=== PATIENT | male | born 1940 | race Caucasian/White ===

== ENCOUNTER 2017-01-03 14:02 | Inpatient (IN) | payer OTHER, SELFPAY ==
[2017-01-01 08:24] LABS: BASOPHILS 0.3 %; BASOPHILS ABSOLUTE 0.03 10/3/uL (0.0-0.16); EOSINOPHILS 0.5 %; EOSINOPHILS ABSOLUTE 0.05 10/3/uL (0.0-0.53); HEMOGLOBIN 12.8 g/dL (13.6-17.8); IMMATURE GRANULOCYTES 0.3 %; IMMATURE GRANULOCYTES ABSOLUTE 0.03 10/3/uL (0.0-0.11); LYMPHOCYTES 13.5 %; LYMPHOCYTES ABSOLUTE 1.24 10/3/uL (0.67-4.30); MEAN CORPUSCULAR HEMOGLOB 28.2 pg (26.0-34.0); MEAN CORPUSCULAR VOLUME 88.1 fL (80-100); MEAN PLATELET VOLUME 10.1 fL (9.2-13.0); MONOCYTES 12.8 %; MONOCYTES ABSOLUTE 1.17 10/3/uL (0.21-1.20); NEUTROPHILS 72.6 %; NEUTROPHILS ABSOLUTE 6.65 10/3/uL (2.02-8.40); PLATELET COUNT 234 10/3/uL (150-400); RBC DISTRIBUTION WIDTH 14.7 % (12.0-16.0); RED CELL COUNT 4.54 10/6/uL (4.7-6.1); RETICULOCYTE COUNT 1.6 % (0.5-2.5); WHITE BLOOD CELLS 9.2 10/3/uL (4.5-10.5)
[2017-01-01 08:26] LABS: MANUAL DIFF NO %; RETICULOCYTE COUNT ABSOLUTE 70.8 10/3/uL (20.2-119.8)
--- NOTE | ~2017-01-03 | HP ---
History And Physical [id number] [place]. [address] NAME: ELIAZAR SHARP : 42 STATUS : ADM IN PAT#: [id number] AGE: 76 ADM/REG DATE : 01/03/17 MR#: [id number] REPORT SERV DATE: 01/05/17 DICTATED BY: LUIS SAMUELS DATE: 01/05/17 REPORT STATUS : Draft TRANSCRIBED BY: MODL DATE: 01/05/17 DATE OF ADMISSION: 01/03/2017 HISTORY: 76-year-old, white male, presented to the ED with several day history of progressively worsening right upper quadrant pain and discomfort. He also recently had constipation with no BM for 1 week in spite of Dulcolax orally, Dulcolax suppository, and mag citrate. Upon presenting to the ED, he had imaging consisting of a CT scan that was consistent with acute cholecystitis with cholelithiasis. Additional note was made of several new metastases from known myeloma in the left sacrum iliac bone, right inferior pubic bone, and possibly a third lesion in the right rib that was less impressive, but subtle. PAST MEDICAL HISTORY: Myeloma, hypertension, and high cholesterol. ALLERGIES: THE PATIENT HAS NO ALLERGIES TO FOOD, LATEX OR MEDICATIONS. PRIOR SURGERY: Include hemorrhoidectomy remotely. He had a C-spine stabilization due to myeloma involvement of the cervical vertebral bodies, 06/[address] Ureña. The patient is retired. He is a nonsmoker, nondrinker, and has 4 grown children. LABORATORY DATA: WBCs 5000, H and H 12.2 and 36.3. The patient has no left shift. He has 213,000 platelets. Chem profile shows a potassium of 3.9, BUN of 24, creatinine 1.39, glucose 94, albumin 3.1. Liver enzymes normal with mild elevation of AST at 50, lipase normal. CT scanning previously mentioned. The impression is that of gallstones and what appears to be acute cholecystitis and than the aforementioned metastatic disease. An ultrasound performed shows cholelithiasis. The gallbladder appeared normal with no evidence of wall thickening or pericholecystic fluid. On ultrasound image, he has hemangioma of the liver. PHYSICAL EXAMINATION: GENERAL: The patient is alert, oriented male, mild to moderate discomfort in the right upper quadrant. HEENT: Examination within normal limits. He has well-healed incision in his neck from previous C-spine surgery. There is no thyromegaly, nodularity, nodes, masses or tenderness. CARDIOVASCULAR: Regular rate and rhythm. ABDOMEN: Shows some guarding and discomfort, tenderness in right upper quadrant without rebound. He has no abdominal wall scar or hernia. IMPRESSION: 1. Acute or subacute cholecystitis with cholelithiasis. 2. Multiple myeloma with new mets to the pubic bone, pelvic ramus, and possible right rib. PLAN: Talked to the patient's family about risks and benefits of anesthesia and surgery. Described laparoscopic cholecystectomy. I have indicated to him that it is possible some of his discomfort is related to the new lesion in the rib rather than his gallbladder disease History And Physical [address] [place]. [address] NAME: ELIAZAR SHARP : 42 STATUS : ADM IN [facility]#: [id number] AGE: 76 ADM/REG DATE : 01/03/17 MR#: [id number] REPORT SERV DATE: 01/05/17 DICTATED BY: LUIS SAMUELS DATE: 01/05/17 REPORT STATUS : Draft TRANSCRIBED BY: ELIANA DATE: 01/05/[address] imaging suggesting acute cholecystitis and his pain syndrome, I think it is reasonable to proceed with surgery. MARITA/ELIANA Luis Samuels M.D. / [id number] CC: Leigh Dacosta M.D.
--- NOTE | ~2017-01-03 | OP ---
Record Of Operation [facility] [address] [place]. [address] NAME: ELIAZAR SHARP : 42 STATUS : ADM IN PAT#: [id number] AGE: 76 ADM/REG DATE : 01/03/17 MR#: [id number] REPORT SERV DATE: 01/05/17 DICTATED BY: LUIS SAMUELS DATE: 01/05/17 REPORT STATUS : Draft TRANSCRIBED BY: MODL DATE: 01/05/17 DATE OF PROCEDURE: 01/04/2017 PREOPERATIVE DIAGNOSIS: Subacute and acute cholecystitis and cholelithiasis. POSTOPERATIVE DIAGNOSIS: Subacute and acute cholecystitis and cholelithiasis. PROCEDURE: Laparoscopic cholecystectomy (two-site). SURGEON: Luis Samuels M.D. DESCRIPTION OF OPERATIVE PROCEDURE: The patient was brought to the operating suite, placed in a supine position, underwent satisfactory general endotracheal anesthesia without incident. The skin of the abdomen was scrubbed, prepped, and draped in usual sterile fashion. 0.5% Marcaine with epinephrine was utilized as supplemental local anesthesia at all intended trocar sites. Initially, an infraumbilical incision was performed dissecting through the skin and subcutaneous tissue to the umbilical fascia. This was grasped with a Mary Ann clamp and elevated and a disposable Veress insufflation needle was inserted through the umbilical fascia into the peritoneal cavity. Intraperitoneal tip location ascertained using saline hanging drop method. CO2 insufflated for pressures of 15 mmHg throughout the case. After adequate insufflation pressure achieved, Veress needle was removed, disposable bladed shielded 11 mm trocar inserted through the umbilical fascia into the peritoneal cavity following which a rigid forward-viewing 10 mm laparoscope was inserted. Visualization of intraabdominal parietes revealed no evidence of injury from initial insufflation or puncture. A cursory examination of pelvis was normal. Attention was turned to the upper abdomen. An additional 5 mm trocar was placed to right of falciform ligament. An additional 5 mm grasping instrument was inserted through the umbilical fascia next to the umbilical trocar. The gallbladder was visualized and had subacute inflammatory changes with fairly dense periduodenal adhesions. Fundus of the gallbladder was grasped and elevated and then using blunt and cautery dissection, the adhesions were taken down. The gallbladder wall look thickened and inflamed. Dissection in triangle of Calot was successful in identifying and skeletonizing the cystic duct, cystic duct-common duct junction, as well as the cystic artery, which was anterior. Both of these structures were controlled with multiple applications of the Weck 5 mm polymer clip system and divided, and then using spatula cautery dissection, the peritoneal attachments of the gallbladder and liver were divided. The gallbladder was removed from the subhepatic space. Hemostasis was assured. Next, irrigation was performed in the subhepatic space with 20-40 mL of saline and aspirated. The gallbladder was passed through the grasping instrument, passed through the Record Of Operation [address] [address] NAME: ELIAZAR SHARP : 42 STATUS : ADM IN [facility]#: [id number] AGE: 76 ADM/REG DATE : 01/03/17 MR#: [id number] REPORT SERV DATE: 01/05/17 DICTATED BY: LUIS SAMUELS DATE: 01/05/17 REPORT STATUS : Draft TRANSCRIBED BY: ELIANA DATE: 01/05/17 umbilical trocar, and withdrawn. The gallbladder was aspirated free of bile and multiple stones removed and the gallbladder was delivered. CO2 was allowed to egress from peritoneal cavity. No muscular bleeding was noted. The umbilicus was closed with [id number] suture 0 Vicryl, subcutaneous tissue closure with interrupted 4-0 Vicryl, running subcuticular stitch 4-0 Vicryl for the skin. Dermabond skin adhesive placed. The patient tolerated the procedure well and was returned to PACU in stable condition. At the termination procedure, sponge, needle, lap, and instrument counts were correct x3. ESTIMATED BLOOD LOSS: 15 mL. MARITA/ELIANA Luis Samuels M.D. / [id number] CC: Leigh Dacosta M.D.
[~2017-01-03 14:02] MED LIST: ASAB PO; CENTRUM PO; CYANO1000T PO; DSS PO; HYZAAR 100/25 T1 TAB PO; MOBIC7.5 PO; MSCONT15 PO; P10 PO; VITAMIN D1000 UNI1 PO; VITC500 PO; ZOCOR40 PO
[2017-01-03 14:29] LABS: BASOPHILS 0.2 %; BASOPHILS ABSOLUTE 0.01 10/3/uL (0.0-0.16); EOSINOPHILS 0.4 %; EOSINOPHILS ABSOLUTE 0.02 10/3/uL (0.0-0.53); HEMATOCRIT 36.3 % (40.0-51.0); HEMOGLOBIN 12.2 g/dL (13.6-17.8); IMMATURE GRANULOCYTES 0.2 %; IMMATURE GRANULOCYTES ABSOLUTE 0.01 10/3/uL (0.0-0.11); LYMPHOCYTES 23.4 %; LYMPHOCYTES ABSOLUTE 1.17 10/3/uL (0.67-4.30); MEAN CORPUS HGB CONC 33.6 g/dL (32.0-36.0); MEAN CORPUSCULAR VOLUME 86.4 fL (80-100); MEAN PLATELET VOLUME 10.1 fL (9.2-13.0); MONOCYTES 12.6 %; MONOCYTES ABSOLUTE 0.63 10/3/uL (0.21-1.20); NEUTROPHILS 63.2 %; NEUTROPHILS ABSOLUTE 3.15 10/3/uL (2.02-8.40); PLATELET COUNT 213 10/3/uL (150-400); RBC DISTRIBUTION WIDTH 14.4 % (12.0-16.0)
[2017-01-03 14:30] LABS: ER CBC TAT 0 Hrs 07 Mins; MANUAL DIFF NO %
[2017-01-03 14:34] LABS: ASCORBIC ACID (UR NOT ORDER) NEG (NEG); BILIRUBIN, URINE NEGATIVE (NEG); ER URINALYSIS TAT 0 Hrs 11 Mins; KETONE, URINE NEGATIVE (NEG); LEUKOCYTE ESTERASE(NOT OR NEG (NEG); NITRITE (URINE) NEG (NEG); WBC (NOT ORDERED) (RFLEX) < 1 (0-5)
[2017-01-03 14:44] LABS: ALBUMIN 3.1 G/DL (3.5-5.0); CHLORIDE, SERUM 103 MMOL/L (96-112); CO2 (CARBON DIOXIDE) 28 MMOL/L (24-34); CREATININE 1.39 MG/DL (0.70-1.30); GFR AFRICAN AMERICAN 57 ML/MIN (>=60); GFR NON AFRICAN AMERICAN 49 ML/MIN (>=60); GLUCOSE, SERUM 94 MG/DL (60-99); POTASSIUM, SERUM 3.9 MMOL/L (3.5-5.3); SGOT(AST) 50 U/L (5-40); SGPT(ALT) 28 U/L (5-65); SODIUM, SERUM 139 MMOL/L (135-148); TOTAL BILIRUBIN 0.6 MG/DL (0-1.2)
[2017-01-03 14:45] LABS: A/G RATIO 0.7 (0.7-1.9); ALKALINE PHOSPHATASE 69 U/L (45-117); BUN (BLOOD UREA NITROGEN) 24 MG/DL (6-23); CALCIUM, SERUM 9.8 MG/DL (8.5-10.4); GLOBULIN 4.6 G/DL (2.5-4.1); TOTAL PROTEIN 7.7 G/DL (6.0-8.5)
[2017-01-03] MEDS ORDERED: PERCOCET 10/3251 TAB PO (19:27)
[2017-01-03] MEDS ORDERED: HYZAAR 100/25 T1 TAB PO (19:27)
[2017-01-03] MEDS ORDERED: TRAZ50 PO (19:27)
[2017-01-03] MEDS ORDERED: MOBIC7.5 PO (19:28)
[2017-01-03] MEDS ORDERED: ZOCOR40 PO (19:28)
[2017-01-03] MEDS ORDERED: ASAB PO (19:29)
[2017-01-03] MEDS ORDERED: GLUCCHONDR PO (19:29)
[2017-01-03] MEDS ORDERED: VITAMIN D2000 UNIT PO (19:29)
[2017-01-03] MEDS ORDERED: CYANO1000T PO (19:29)
[2017-01-03] MEDS ORDERED: CENTRUM PO (19:30)
[2017-01-03] MEDS ORDERED: D.O.S.100 MG PO (19:37)
[2017-01-03] MEDS ORDERED: VITC500 PO (19:37)
[2017-01-03] MEDS ORDERED: SENTAB PO (19:38)
[2017-01-03] MEDS ORDERED: MAGNESIUM CITRATE PO (19:38)
[2017-01-03] MEDS ORDERED: [UNRECOGNIZED DRUG - OTHER] PR (19:39)
[2017-01-05 04:13] LABS: BASOPHILS 0.2 %; BASOPHILS ABSOLUTE 0.01 10/3/uL (0.0-0.16); EOSINOPHILS 0.2 %; EOSINOPHILS ABSOLUTE 0.01 10/3/uL (0.0-0.53); HEMATOCRIT 33.4 % (40.0-51.0); HEMOGLOBIN 11.1 g/dL (13.6-17.8); IMMATURE GRANULOCYTES 0.2 %; IMMATURE GRANULOCYTES ABSOLUTE 0.01 10/3/uL (0.0-0.11); LYMPHOCYTES 13.2 %; LYMPHOCYTES ABSOLUTE 0.77 10/3/uL (0.67-4.30); MANUAL DIFF NO %; MEAN CORPUS HGB CONC 33.2 g/dL (32.0-36.0); MEAN CORPUSCULAR HEMOGLOB 29.4 pg (26.0-34.0); MEAN CORPUSCULAR VOLUME 88.4 fL (80-100); MEAN PLATELET VOLUME 10.2 fL (9.2-13.0); MONOCYTES 8.7 %; MONOCYTES ABSOLUTE 0.51 10/3/uL (0.21-1.20); NEUTROPHILS 77.5 %; NEUTROPHILS ABSOLUTE 4.54 10/3/uL (2.02-8.40); PLATELET COUNT 184 10/3/uL (150-400); RBC DISTRIBUTION WIDTH 14.3 % (12.0-16.0); RED CELL COUNT 3.78 10/6/uL (4.7-6.1); WHITE BLOOD CELLS 5.9 10/3/uL (4.5-10.5)
[2017-01-05 04:30] LABS: CALCIUM, SERUM 9.4 MG/DL (8.5-10.4); CHLORIDE, SERUM 107 MMOL/L (96-112); CO2 (CARBON DIOXIDE) 27 MMOL/L (24-34); CREATININE 1.33 MG/DL (0.70-1.30); GFR AFRICAN AMERICAN 60 ML/MIN (>=60); GFR NON AFRICAN AMERICAN 52 ML/MIN (>=60); GLUCOSE, SERUM 92 MG/DL (60-99); POTASSIUM, SERUM 4.1 MMOL/L (3.5-5.3); SODIUM, SERUM 141 MMOL/L (135-148)
[2017-01-05 04:33] LABS: BUN (BLOOD UREA NITROGEN) 19 MG/DL (6-23)
== END 2017-01-05 12:13 | disposition home or self-care (01) | DRG 418 ==
LOC: ER 14:02 → 4SO 19:40
PROVIDERS: Emergency Medicine; Internal Medicine Hematology & Oncology; Specialist
PROC: 0FT44ZZ Resection of Gallbladder, Percutaneous Endoscopic Approach (ICD-10-PCS; principal; 2017-01-03)
DX: K80.12 Calculus of gallbladder with acute and chronic cholecystitis without obstruction (principal); C90.00 Multiple myeloma not having achieved remission; C79.51 Secondary malignant neoplasm of bone; K59.00 Constipation, unspecified; I10 Essential (primary) hypertension; E78.00 Pure hypercholesterolemia, unspecified; Z98.1 Arthrodesis status; I44.7 Left bundle-branch block, unspecified
CPT/HCPCS: 36415; 74176; 76705; 80048; 80053; 81001; 83690; 85025; 85045; 88304; 93005; 96374; 99285; A9270-GY; J1170; J2405; J2543; J2710; J3010